=== PATIENT | female | born 1955 | race Caucasian/White ===

== ENCOUNTER 2018-08-26 00:26 | Emergency (ER) | payer MEDICARE, MEDICAID ==
[~2018-08-26 00:26] MED LIST: ALBU18HF2 PO; AMIT-189 PO; BECL8.7A7 IH; FLUT16SP26 NS; GUAI100S25 PO; IPRA3AMP31 INH; PER5325T PO
== END 2018-08-26 01:35 | disposition left against medical advice (07) ==
LOC: ER 00:26
DX: S00.81XA Abrasion of other part of head, initial encounter (principal); Z53.21 Procedure and treatment not carried out due to patient leaving prior to being seen by health care provider; W18.39XA Other fall on same level, initial encounter; Y93.89 Activity, other specified; Y92.89 Other specified places as the place of occurrence of the external cause; Y99.8 Other external cause status

== ENCOUNTER 2018-10-08 02:55 | Emergency (ER) | payer MEDICARE, MEDICAID ==
[~2018-10-08] VITALS: Ht 165.1 cm; Wt 103.6 kg
[2018-10-08] MEDS ORDERED: metroNIDAZOLE-Flagyl 500mg/NS 100 ML IV STA (02:59)
[2018-10-08] MEDS ORDERED: ondansetron/PF 4mg/2ml inj IV ONE (03:00)
[2018-10-08] MEDS ORDERED: fluconazole 150mg tablet PO ONE (03:00)
[2018-10-08] MEDS ORDERED: aspirin 81mg tab.chew PO ONE (03:00)
[2018-10-08] MEDS ORDERED: metroNIDAZOLE 500mg tablet PO ONE (03:30)
[2018-10-08] MEDS ORDERED: acetaminophen 325mg tablet PO ONE (03:30)
--- NOTE | 2018-10-08 03:37 | NUR ---
UNSUCCESSFUL WITH IV SO MARIOLA ELIAS WILL ATTEMPT WITH ULTRASOUND.
--- NOTE | 2018-10-08 03:55 | NUR ---
tech and myself gave pt bedbath and clean linen/gown and warmed blankets and booties.
[2018-10-08 03:57] LABS: BASOPHILS % (AUTO) 0.2 % (0-1); EOSINOPHILS # (AUTO) 0.1 X10'3 (0-0.9); EOSINOPHILS % (AUTO) 0.6 % (0-6); HEMATOCRIT 49.7 % (35.0-45.0); HEMOGLOBIN 16.2 g/dl (12.0-16.0); LYMPHOCYTES # (AUTO) 2.8 X10'3 (1.1-4.8); LYMPHOCYTES % (AUTO) 19.6 % (21-51); MEAN CORPUSCULAR HEMOGLOBIN 30.6 PG (27.0-31.0); MEAN CORPUSCULAR HGB CONC 32.6 g/dL (33.0-36.5); MEAN CORPUSCULAR VOLUME 93.7 FL (78-98); MEAN PLATELET VOLUME 7.7 FL (7.4-10.4); MONOCYTES # (AUTO) 0.7 X10'3 (0-0.9); MONOCYTES % (AUTO) 4.5 % (2-12); NEUTROPHILS # (AUTO) 10.9 X10'3 (1.8-7.7); NEUTROPHILS % (AUTO) 75.1 % (42-75); PLATELET COUNT 313 X10'3 (140-440); WHITE BLOOD COUNT 14.4 X10'3 (4.5-11.0)
[2018-10-08 04:09] LABS: ALANINE AMINOTRANSFERASE 29 U/L (12-78); ALBUMIN 3.3 G/DL (3.4-5.0); ALBUMIN/GLOBULIN RATIO 0.8 (1.1-1.5); ALKALINE PHOSPHATASE 110 IU/L (46-116); ANION GAP 7 (8-16); ASPARTATE AMINO TRANSFERASE 29 U/L (10-37); BILIRUBIN,TOTAL 0.3 MG/DL (0.1-1.0); BLOOD UREA NITROGEN 4 MG/DL (7-18); CALCIUM 8.5 MG/DL (8.5-10.1); CHLORIDE 102 MMOL/L (99-107); CREATININE 0.67 MG/DL (0.40-0.90); GLUCOSE 100 MG/DL (70-104); POTASSIUM 4.1 MMOL/L (3.5-5.1); SODIUM 142 MMOL/L (135-145); TOTAL CARBON DIOXIDE 32.7 MMOL/L (24-32); TOTAL PROTEIN 7.5 G/DL (6.4-8.2); eGFR 90 ML/MIN
[2018-10-08] MEDS ORDERED: AZIT-63 PO (04:27)
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
--- NOTE | 2018-10-08 06:34 | NUR ---
waiting for case management so we can go get her wheelchair
--- NOTE | 2018-10-08 08:45 | NUR ---
Spoke with Cecily, states patient electric wc is at [facility] on [address], patient needs to be discharged, Cecily states patient is incapable of standing and requires two assist [address] into w/c, so patient can not go by cab to [facility], called [employer], [employer] will parts picker electric wc from [facility] and bring to bed 9 in ER to patient
[2018-10-08 09:04] VITALS: BP 106/69
== END 2018-10-08 12:45 | disposition home or self-care (01) ==
LOC: ER 02:56
DX: M79.602 Pain in left arm (principal); R07.9 Chest pain, unspecified; J43.9 Emphysema, unspecified; G89.29 Other chronic pain; Z88.6 Allergy status to analgesic agent; Z79.899 Other long term (current) drug therapy; Z59.0 Homelessness; Z56.0 Unemployment, unspecified
CPT/HCPCS: 36415; 71045; 80053; 83735; 83880; 84484; 85025; 93005; 96365; 96366; 96375; 99284; J2405; J3490